=== PATIENT | female | born 1955 | race Caucasian/White ===

== ENCOUNTER 2017-07-03 05:51 | Day surgery (SDC) | payer OTHER ==
[~2017-07-03] VITALS: Ht 160 cm; Wt 105.7 kg
[2017-07-03] MEDS ORDERED: LISI5TAB18 PO (07:25)
[2017-07-03] MEDS ORDERED: PROP1SOL IV (07:25)
[2017-07-03] MEDS ORDERED: ASPI81CT89 PO (07:25)
[2017-07-03] MEDS ORDERED: fentaNYL 0.05 MG/ML VIAL ONE (07:47)
[2017-07-03] MEDS ORDERED: LIDOCAINE 2% 100 MG/5 ML UJET TP ONE (07:47)
[2017-07-03] MEDS ORDERED: MIDAZOLAM 2 MG/2 ML VIAL ONE (07:47)
[2017-07-03] MEDS ORDERED: MIDAZOLAM 2 MG/2 ML VIAL IVP ONE (10:00)
[2017-07-03] MEDS ORDERED: fentaNYL 0.05 MG/ML VIAL IVP ONE (10:00)
== END 2017-07-03 09:25 | disposition home or self-care (01) ==
LOC: MDS 05:51 → MMU 05:56 → MDS 09:25
PROVIDERS: ATTEND Internal Medicine Gastroenterology
DX: K63.5 Polyp of colon (principal); K29.90 Gastroduodenitis, unspecified, without bleeding; I10 Essential (primary) hypertension; E11.9 Type 2 diabetes mellitus without complications; E66.01 Morbid (severe) obesity due to excess calories; Z87.891 Personal history of nicotine dependence; Z79.899 Other long term (current) drug therapy; Z79.82 Long term (current) use of aspirin; Z68.41 Body mass index [BMI] 40.0-44.9, adult; Z90.710 Acquired absence of both cervix and uterus; Z98.51 Tubal ligation status; Z98.890 Other specified postprocedural states; Z90.49 Acquired absence of other specified parts of digestive tract; Z85.3 Personal history of malignant neoplasm of breast
CPT/HCPCS: 36415; 43239; 45385; 86677; J2250; J3010

== ENCOUNTER 2018-03-26 08:09 | Day surgery (SDC) | payer OTHER ==
[~2018-03-26] VITALS: Ht 160 cm; Wt 108.9 kg
[~2018-03-26 08:09] MED LIST: ASPI81CT89 PO; LISI5TAB18 PO; PROP1VIA IV
[2018-03-26] MEDS ORDERED: BUPIVACAINE-MPF/EPI 0.5% 30 ML VIAL INJ ONE (09:38)
[2018-03-26] MEDS ORDERED: LIDOCAINE 1% 50 ML ONE (09:39)
[2018-03-26] MEDS ORDERED: ceFAZolin 1,000 MG VIAL ONE (09:39)
[2018-03-26] MEDS ORDERED: FAMO-90 PO (10:10)
[2018-03-26] MEDS ORDERED: ONDA8TAB13 PO (10:10)
[2018-03-26] MEDS ORDERED: FURO-570 PO (10:10)
[2018-03-26] MEDS ORDERED: PROPOFOL 200 MG/20 ML VIAL IV ONE (10:33)
[2018-03-26] MEDS ORDERED: fentaNYL 0.05 MG/ML VIAL ONE (10:47)
[2018-03-26] MEDS ORDERED: MIDAZOLAM 2 MG/2 ML VIAL ONE (10:47)
[2018-03-26] MEDS ORDERED: ONDANSETRON 4 MG/2 ML VIAL IVP PRN (11:00)
[2018-03-26] MEDS ORDERED: HYDROmorphone 1 MG/ML AMP IVP PRN ×2 (11:00→12:10)
[2018-03-26] MEDS ORDERED: LIDOCAINE 1% 500 MG/50 ML VIAL INJ ONE (11:30)
[2018-03-26] MEDS ORDERED: ceFAZolin 1,000 MG VIAL IVP ONE (11:30)
[2018-03-26] MEDS ORDERED: NACL 0.9% 1,000 ML IV SCH (12:08)
[2018-03-26] MEDS ORDERED: HYDROcodone/APAP 5/325 MG 1 TAB TAB PO PRN (12:10)
[2018-03-26] MEDS ORDERED: MORPHINE SULFATE 4 MG/ML SYR IV PRN (12:10)
[2018-03-26] MEDS ORDERED: MORPHINE SULFATE 2 MG/ML SYR IVP PRN (12:10)
[2018-03-26] MEDS ORDERED: ONDANSETRON 4 MG/2 ML VIAL IV PRN (12:10)
[2018-03-26] MEDS ORDERED: BUPIVACAINE-MPF 0.5% 30 ML VIAL INJ ONE (13:37)
[2018-03-26] MEDS ORDERED: HYDR-5122 PO (19:24)
== END 2018-03-26 19:50 | disposition home or self-care (01) ==
LOC: MMU 08:09 → MOR 08:09 → MTU 18:53 → MOR 19:50
PROVIDERS: ATTEND Surgery
DX: C50.212 Malignant neoplasm of upper-inner quadrant of left female breast (principal); I10 Essential (primary) hypertension; E05.90 Thyrotoxicosis, unspecified without thyrotoxic crisis or storm; K21.9 Gastro-esophageal reflux disease without esophagitis; E66.9 Obesity, unspecified; Z68.28 Body mass index [BMI] 28.0-28.9, adult; Z79.82 Long term (current) use of aspirin; Z79.899 Other long term (current) drug therapy; Z90.49 Acquired absence of other specified parts of digestive tract; Z98.890 Other specified postprocedural states; Z98.51 Tubal ligation status; Z17.1 Estrogen receptor negative status [ER-]
CPT/HCPCS: 36561; 71045; 76000; 76937; 82948; 93005; C1751; J0690; J1644; J2001; J2250; J2704; J3010; J3490; J7030; J7060; Q0092

== ENCOUNTER 2019-02-16 08:53 | Day surgery (SDC) | payer OTHER, MEDICAID ==
[2019-02-12 10:51] LABS: BASOPHILS % (AUTO) 0.9 % (0.0-2.0); EOSINOPHILS # (AUTO) 0.2 K/uL (0-0.4); EOSINOPHILS % (AUTO) 4.2 % (0.0-4.0); HEMATOCRIT 36.6 % (36-48); HEMOGLOBIN 12.2 g/dL (12.0-16.0); LYMPHOCYTES # (AUTO) 1.5 K/uL (2.5-16.5); LYMPHOCYTES % (AUTO) 30.9 % (20.5-51.1); MEAN CORPUSCULAR HEMOGLOBIN 28 pg (27-31); MEAN CORPUSCULAR HGB CONC 33 g/dL (33-37); MONOCYTES # (AUTO) 0.4 K/uL (0.8-1.0); MONOCYTES % (AUTO) 7.9 % (1.7-9.3); NEUTROPHILS # (AUTO) 2.7 K/uL (1.8-7.7); NEUTROPHILS % (AUTO) 56.1 % (42.2-75.2); PLATELET COUNT (AUTO) 145 K/uL (140-450); RED CELL DISTRIBUTION WIDTH 17.1 % (11.6-13.7); WHITE BLOOD COUNT (AUTO) 4.9 K/uL (4.8-10.8)
[2019-02-12 11:30] LABS: ALBUMIN 3.3 g/dL (3.4-5.0); ANION GAP 8.9 (8-16); CREATININE 0.8 mg/dL (0.6-1.3); POTASSIUM 3.9 mmol/L (3.5-5.1); TOTAL BILIRUBIN 0.6 mg/dL (0.0-1.0)
[~2019-02-16] VITALS: Ht 160 cm; Wt 105.7 kg
[~2019-02-16 08:53] MED LIST changes: +ASPI-1718 PO; -ASPI81CT89 PO; +FAMO-90 PO; +FURO-570 PO; +HYDR-5122 PO; +ONDA8TAB13 PO
[2019-02-16] MEDS ORDERED: MIDAZOLAM 2 MG/2 ML VIAL ONE ×2 (11:07)
[2019-02-16] MEDS ORDERED: fentaNYL 0.05 MG/ML VIAL ONE (11:07)
[2019-02-16] MEDS ORDERED: LIDOCAINE/EPI MPF 1%1:200000 30 ML VIAL INJ ONE (11:26)
[2019-02-16] MEDS ORDERED: BUPIVACAINE-MPF 0.5% 30 ML VIAL INJ ONE (11:27)
[2019-02-16] MEDS ORDERED: HYDROmorphone 1 MG/ML AMP IVP PRN (11:55)
[2019-02-16] MEDS ORDERED: MORPHINE SULFATE 2 MG/ML SYR IVP PRN (11:55)
[2019-02-16] MEDS ORDERED: ONDANSETRON 4 MG/2 ML VIAL IV PRN (11:55)
[2019-02-16] MEDS ORDERED: HYDROcodone/APAP 5/325 MG 1 TAB TAB PO PRN (11:55)
[2019-02-16] MEDS ORDERED: MORPHINE SULFATE 4 MG/ML SYR IV PRN (11:55)
[2019-02-16] MEDS ORDERED: ACETAMINOPHEN 325 MG TAB PO PRN (11:55)
== END 2019-02-16 12:45 | disposition home or self-care (01) ==
LOC: MOR 08:53 → MMU 08:54 → MOR 12:45
PROVIDERS: ATTEND Surgery
DX: Z45.2 Encounter for adjustment and management of vascular access device (principal); I10 Essential (primary) hypertension; Z85.3 Personal history of malignant neoplasm of breast; Z90.12 Acquired absence of left breast and nipple; Z98.890 Other specified postprocedural states; Z79.82 Long term (current) use of aspirin; Z79.899 Other long term (current) drug therapy; E66.9 Obesity, unspecified
CPT/HCPCS: 36415; 36590; 71045; 80053; 85025; 88300; 93005; J0690; J2001; J2250; J3010; J3490; J7060; J7120